=== PATIENT | male | born 1970 | race Caucasian/White ===

== ENCOUNTER 2019-09-03 10:48 | Emergency (ER) | payer SELFPAY ==
--- NOTE | 2019-09-03 11:25 | EDM.PDOC ---
ED HPI GENERAL MEDICAL PROBLEM - General Chief Complaint: Gastrointestinal Problem Stated Complaint: RECTAL BLEEDING Time Seen by Provider: 09/03/19 10:50 Source of Information: Reports: Patient History Limitations: Reports: No Limitations - History of Present Illness INITIAL COMMENTS - FREE TEXT/NARRATIVE: Presents for rectal bleeding "worse than usual". The patient states that off and on through the years he has had a scant amount of rectal bleeding. 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 In the last 24 hours he has had quite a bit of bright red rectal bleeding. No associated symptoms such as anal pain, abdominal pain, fever, diarrhea, nausea, vomiting, lightheadedness. He states his last three daily BMs have been "hard"- -like rabbit turds. He has been eating and drinking normally. 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 He has never had upper or lower GI bleeding only the scant rectal bleeding. Otherwise healthy without chronic medical problems. He has always had a slight build. May have lost a couple pounds this year. He did have a colonoscopy many years ago. - Related Data Allergies Allergy/AdvReac Type Severity Reaction Status Date / Time No Known Allergies Allergy Verified 09/03/19 11:06 Home Meds: Home Meds Hydrocortisone [Proctocort] 1 applic RC BID #1 tube 09/03/19 [Rx] Past Medical History Gastrointestinal History: Reports: Hemorrhoids - Infectious Disease History Infectious Disease History: Reports: Chicken Pox - Past Surgical History HEENT Surgical History: Reports: Tonsillectomy Other HEENT Surgeries/Procedures: facial reconstruction at 16years old. history of multiple nasal fractures . Musculoskeletal Surgical History: Reports: Arthroscopic Knee, Arthroscopic Procedure Social & Family History - Family History Family Medical History: Noncontributory - Tobacco Use Smoking Status *Q: Never Smoker - Caffeine Use Caffeine Use: Reports: Coffee - Recreational Drug Use Recreational Drug Use: No - Living Situation & Occupation Living situation: Reports: , with Spouse Occupation: Employed ([employer]) ED ROS GENERAL - Review of Systems Review Of Systems: Comprehensive ROS is negative, except as noted in HPI. ED EXAM, GI/ABD - Physical Exam Exam: See Below Exam Limited By: No Limitations General Appearance: Alert, No Apparent Distress Ears: Normal External Exam Nose: Normal Inspection Throat/Mouth: Normal Inspection Head: Atraumatic, Normocephalic Neck: Normal Inspection Respiratory/Chest: No Respiratory Distress, Lungs Clear, Normal Breath Sounds Cardiovascular: Normal Peripheral Pulses, Regular Rate, Rhythm, No Edema, No Murmur GI/Abdominal Exam: Normal Bowel Sounds, Soft, Non-Tender, No Distention Rectal (Males) Exam: Normal Rectal Tone, Hemorrhoids (1 diminutive, not thrombosed), Rectal Fissure, Other (No stool in rectal vault. Scant pink mucus. ) Extremities: Normal Inspection Neurological: Alert, Oriented, Normal Cognition Psychiatric: Normal Affect, Normal Mood Skin Exam: Warm, Dry, Intact, Normal Color, No Rash Lymphatic: No Adenopathy Course - Vital Signs Last Recorded V/S: Last Vital Signs Temp 36.6 C 09/03/19 11:02 Pulse 71 09/03/19 11:02 Resp 18 09/03/19 11:02 BP 134/80 09/03/19 11:02 Pulse Ox 98 09/03/19 11:02 - Orders/Labs/Meds Orders: Active Orders 24 hr Category Date Time Status CBC WITH AUTO DIFF [HEME] Stat Lab 09/03/19 11:14 Ordered Departure - Departure Time of Disposition: 12:12 Disposition: Home, Self-Care 01 Condition: Good Clinical Impression: Rectal bleeding Constipation Qualifiers: Constipation type: unspecified constipation type Qualified Code(s): K59.00 - Constipation, unspecified - Discharge Information *PRESCRIPTION DRUG MONITORING PROGRAM REVIEWED*: Not Applicable *COPY OF PRESCRIPTION DRUG MONITORING REPORT IN PATIENT MEGHANN: Not Applicable Referrals: PCP,None [Primary Care Provider] - [facility] [Outside] [facility] [Outside] Additional Instructions: 1. Please guard against constipation. Take MiraLAX once daily until stools are soft. Then take colace (docusate) a stool softener, once daily to keep stools soft. 2. Proctocort cream to hemorrhoid and fissure twice daily and after BM. Keep anal area clean and dry. 3. Drink plenty of fluids. 4. You MUST follow up in primary care for preventive care and further evaluation of your rectal bleeding. Sepsis Event Note (ED) - Evaluation Sepsis Screening Result: No Definite Risk - Focused Exam Vital Signs: Vital Signs Temp Pulse Resp BP Pulse Ox 09/03/19 11:02 36.6 C 71 18 134/80 98 - My Orders Last 24 Hours: My Active Orders 09/03/19 11:14 CBC WITH AUTO DIFF [HEME] Stat - Assessment/Plan Last 24 Hours: My Active Orders 09/03/19 11:14 CBC WITH AUTO DIFF [HEME] Stat
== END 2019-09-03 12:29 | disposition home or self-care (01) ==
LOC: MW.ED 10:48
DX: K62.5 Hemorrhage of anus and rectum (principal); K59.00 Constipation, unspecified; K64.9 Unspecified hemorrhoids
CPT/HCPCS: 36415; 85025; 99282; 99283